=== PATIENT | female | born 1995 | race Two or more races ===

== ENCOUNTER 2018-12-09 16:43 | Emergency (ER) | payer OTHER ==
[~2018-12-09] VITALS: Ht 152.4 cm; Wt 94.0 kg
--- NOTE | 2018-12-09 16:57 | NUR ---
PT AMBULATED TO ROOM WITH STEADY GAIT. PT STATED THAT SHE STARTED BLEEDING ON WEDNESDAY AFTER INTERCOURSE. REPORTS BLOOD ON TOILET PAPER WHEN SHE WIPES EVERY DAY SINCE. PT IS 8 WEEKS . . PT IS ALERT, ORIENTED, WITH NAD. PT IS CONNECTED TO THE MONITOR. CALL LIGHT WITHIN REACH. FRIEND AT BEDSIDE. PA AT BEDSIDE.
[2018-12-09] MEDS ORDERED: ACETAMINOPHEN 325 MG TABLET ONE (17:14)
--- NOTE | 2018-12-09 17:25 | NUR ---
LAB AT BEDSIDE.
[2018-12-09 17:26] LABS: CULTURE INDICATED? NO; MICROSCOPIC AUTO
--- NOTE | 2018-12-09 17:29 | NUR ---
Pt taken to US.
[2018-12-09] MEDS ORDERED: ACETAMINOPHEN 325 MG TABLET PO ONE (17:30)
[2018-12-09 17:47] LABS: ALBUMIN 3.7 g/dL (3.4-5.0); ANION GAP 6 mmol/L (5-15); BASOPHILS # (AUTO) 0.03 x10^3/uL (0-0.1); BASOPHILS % (AUTO) 0 % (0-1); CALCIUM 8.9 mg/dL (8.5-10.1); CHLORIDE 111 mmol/L (98-107); CREATININE 0.78 mg/dL (0.55-1.02); EOSINOPHILS # (AUTO) 0.33 x10^3/uL (0-0.4); EOSINOPHILS % (AUTO) 3 % (1-7); LYMPHOCYTES # (AUTO) 2.38 x10^3/uL (1-3.4); LYMPHOCYTES % (AUTO) 24 % (22-44); MD NO; MEAN CORPUSCULAR HEMOGLOBIN 29.6 pg (27.0-34.8); MEAN CORPUSCULAR HGB CONC 34.2 g/dL (32.4-35.8); MEAN CORPUSCULAR VOLUME 86.5 fL (80-100); MEAN PLATELET VOLUME 7.1 fL (7.4-10.4); MONOCYTES # (AUTO) 0.54 x10^3/uL (0.2-0.8); MONOCYTES % (AUTO) 5 % (2-9); NEUTROPHILS # (AUTO) 6.86 x10^3/uL (1.8-6.8); NEUTROPHILS % (AUTO) 68 % (42-75); PLATELET COUNT 414 x10^3/uL (130-400); RED BLOOD COUNT 4.54 x10^6/uL (3.82-5.3)
[2018-12-09 18:14] VITALS: BP 98/43
--- NOTE | 2018-12-09 18:14 | NUR ---
PT IS RESTING IN BED, RESPIRATIONS EQUAL AND NON LABORED. NAD. PT IS CONNECTED TO THE MONITOR. CALL LIGHT WITHIN REACH.
--- NOTE | 2018-12-09 18:57 | NUR ---
REPORT GIVEN TO NADINE GONZALEZ.
== END 2018-12-09 19:14 | disposition home or self-care (01) ==
LOC: ED 18:27
DX: O03.9 Complete or unspecified spontaneous abortion without complication (principal)
CPT/HCPCS: 36415; 76801; 80048; 81001; 82040; 84702; 85025; 86901; 99284